=== PATIENT | male | born 1965 | race Caucasian/White ===

== ENCOUNTER 2017-01-19 10:14 | Emergency (ER) | payer OTHER ==
[~2017-01-19] VITALS: Ht 167.6 cm; Wt 80.3 kg
[~2017-01-19 10:14] MED LIST: /WARF25TA PO; ACET65TA; CEPH500C; COLA100C2; IBUP800T; LEVA750T; PERC5TAB PO; PERC5TAB8; TYLE325T5 PO; ULTR50TA PO; albuterol INH
[2017-01-19] MEDS ORDERED: PROZ20CA11 PO (10:24)
[2017-01-19] MEDS ORDERED: NORCO, ANEXSIA 5/325MG TABLET (HYDROcodone/ACETAMINOPHEN) PO ONE (11:15)
--- NOTE | 2017-01-19 12:33 | REP ---
RIGHT RIBS, PA CHEST, FIVE VIEWS: HISTORY: Anterior rib pain. The lungs are clear. The heart is normal in size. The pulmonary vasculature is normal in appearance. The bony structure is intact. IMPRESSION: No acute disease. Signed by Noel Garcia MD 01/19/2017 12:42 P
[2017-01-19] MEDS ORDERED: NAPR500T2 PO (12:45)
[2017-01-19] MEDS ORDERED: PERC5TAB6 PO (12:45)
[2017-01-19 12:58] VITALS: BP 129/82
== END 2017-01-19 12:58 | disposition home or self-care (01) ==
LOC: M ED 11:03
DX: S20.211A Contusion of right front wall of thorax, initial encounter (principal); W22.8XXA Striking against or struck by other objects, initial encounter; Y92.89 Other specified places as the place of occurrence of the external cause; Y93.02 Activity, running; Y99.9 Unspecified external cause status

== ENCOUNTER 2017-03-13 12:32 | Emergency (ER) | payer OTHER ==
[~2017-03-13] VITALS: Ht 167.6 cm; Wt 81.6 kg
[~2017-03-13 12:32] MED LIST changes: +NAPR500T2 PO; +PERC5TAB6 PO; +PROZ20CA11 PO
[2017-03-13] MEDS ORDERED: QUET1TAB8 (12:46)
[2017-03-13] MEDS ORDERED: IBUP600T26 PO (13:58)
[2017-03-13 14:06] VITALS: BP 154/97
== END 2017-03-13 14:10 | disposition home or self-care (01) ==
LOC: M ED 13:30
DX: R07.89 Other chest pain (principal); Z91.81 History of falling; F41.9 Anxiety disorder, unspecified; Z87.820 Personal history of traumatic brain injury; Z98.61 Coronary angioplasty status; Z79.899 Other long term (current) drug therapy; Z88.8 Allergy status to other drugs, medicaments and biological substances; Z86.69 Personal history of other diseases of the nervous system and sense organs

== ENCOUNTER 2017-07-03 15:43 | Emergency (ER) | payer OTHER ==
[~2017-07-03] VITALS: Ht 170.2 cm; Wt 81.8 kg
[2017-07-03 15:43] VITALS: BP 117/85
[~2017-07-03 15:43] MED LIST changes: +IBUP-1022 PO; -NAPR500T2 PO; +NAPR500T3 PO; +PERC5TAB12 PO; -PERC5TAB6 PO; +QUET1TAB8
[2017-07-03] MEDS ORDERED: GABA800T PO (15:58)
[2017-07-03] MEDS ORDERED: MELO15TA4 PO (15:58)
[2017-07-03] MEDS ORDERED: TETRACAINE 0.5% OPHTH SOLN 4ML OS ONE (16:15)
[2017-07-03] MEDS ORDERED: FLUORESCEIN OPHTH 1 MG STRIP OS ONE (16:15)
[2017-07-03] MEDS ORDERED: ERYTHROMYCIN OPHTH OINT OS ONE (16:30)
[2017-07-03] MEDS ORDERED: ERYTOIN8 OS (16:47)
== END 2017-07-03 16:56 | disposition home or self-care (01) ==
LOC: M ED 15:43
DX: H57.12 Ocular pain, left eye (principal); H35.30 Unspecified macular degeneration; F41.9 Anxiety disorder, unspecified; Z95.5 Presence of coronary angioplasty implant and graft; Z79.899 Other long term (current) drug therapy; Z88.8 Allergy status to other drugs, medicaments and biological substances

== ENCOUNTER 2017-07-08 18:19 | Emergency (ER) | payer OTHER ==
[~2017-07-08] VITALS: Ht 170.2 cm; Wt 81.8 kg
[~2017-07-08 18:19] MED LIST changes: +ERYTOIN8 OS; +GABA800T PO; +MELO15TA4 PO
[2017-07-08 18:20] VITALS: BP 143/79
--- NOTE | 2017-07-08 19:54 | REP ---
HISTORY: Toe pain. FINDINGS: The joint spaces are symmetric and relatively well maintained. There is no evidence of acute fracture or destructive osseous lesion. IMPRESSION: Negative. Signed by Carlos Alberto Velazco DO 07/09/2017 09:38 A
== END 2017-07-08 20:21 | disposition left against medical advice (07) ==
LOC: M ED 18:19
DX: R52 Pain, unspecified (principal); Z53.21 Procedure and treatment not carried out due to patient leaving prior to being seen by health care provider

== ENCOUNTER 2017-07-09 11:35 | Emergency (ER) | payer OTHER ==
[~2017-07-09] VITALS: Ht 170.2 cm; Wt 81.8 kg
[2017-07-09 11:35] VITALS: BP 139/84
== END 2017-07-09 11:57 | disposition left against medical advice (07) ==
LOC: M ED 11:35
DX: M79.673 Pain in unspecified foot (principal); Z53.29 Procedure and treatment not carried out because of patient's decision for other reasons

== ENCOUNTER 2017-07-14 10:33 | Emergency (ER) | payer OTHER ==
[~2017-07-14] VITALS: Ht 170.2 cm; Wt 81.8 kg
[2017-07-14] MEDS ORDERED: TETRACAINE 0.5% OPHTH SOLN 4ML OS ONE (11:00)
[2017-07-14] MEDS ORDERED: FLUORESCEIN OPHTH 1 MG STRIP OS ONE (11:00)
[2017-07-14 11:55] VITALS: BP 116/72
[2017-07-14] MEDS ORDERED: TOBRSUS41 OS (12:04)
== END 2017-07-14 12:10 | disposition home or self-care (01) ==
LOC: M ED 10:33
DX: H01.006 Unspecified blepharitis left eye, unspecified eyelid (principal); H10.32 Unspecified acute conjunctivitis, left eye

== ENCOUNTER 2018-02-02 15:32 | Emergency (ER) | payer OTHER | END 2018-02-02 17:12 | disposition left against medical advice (07) | LOC: M ED 15:32 | DX: Z53.29 Procedure and treatment not carried out because of patient's decision for other reasons (principal) ==

== ENCOUNTER 2018-06-08 11:24 | Emergency (ER) | payer OTHER ==
[2018-06-08] MEDS: NORCO, ANEXSIA 5/325MG TABLET (HYDROcodone/ACETAMINOPHEN) PO (13:36)
== END 2018-06-08 14:29 | disposition home or self-care (01) ==
LOC: M ED 11:24
DX: S93.402A Sprain of unspecified ligament of left ankle, initial encounter (principal); X50.9XXA Other and unspecified overexertion or strenuous movements or postures, initial encounter; Y92.89 Other specified places as the place of occurrence of the external cause; J44.9 Chronic obstructive pulmonary disease, unspecified; F41.9 Anxiety disorder, unspecified; Z88.8 Allergy status to other drugs, medicaments and biological substances; Z79.899 Other long term (current) drug therapy
CPT/HCPCS: 73590

== ENCOUNTER 2019-04-07 04:13 | Emergency (ER) | payer OTHER, SELFPAY ==
[~2019-04-07] VITALS: Ht 167.6 cm; Wt 100.0 kg
[2019-04-07 04:13] VITALS: BP 143/87
[~2019-04-07 04:13] MED LIST changes: -/WARF25TA PO; +COUM1TAB18 PO; +GABA600T4; -GABA800T PO; +GABA800T4 PO; +HYDR-3363; +LAMO25TA4; +MELO15TA28 PO; -MELO15TA4 PO; +NAPR-885 PO; -NAPR500T3 PO; +PROZ40CA PO; +SERO50TA PO; +TOBRSUS41 OS
--- NOTE | 2019-04-07 11:21 | ECGEPIP ---
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
== END 2019-04-07 05:36 | disposition left against medical advice (07) ==
LOC: M ED 04:13
DX: Z53.29 Procedure and treatment not carried out because of patient's decision for other reasons (principal)

== ENCOUNTER 2019-09-27 11:13 | Emergency (ER) | payer OTHER, SELFPAY ==
[~2019-09-27] VITALS: Ht 170.2 cm; Wt 107.7 kg
[2019-09-27] MEDS ORDERED: GABA800T4 PO (11:19)
[2019-09-27] MEDS ORDERED: TRAZ-252 PO (11:19)
[2019-09-27] MEDS ORDERED: FLUO20CA19 PO (11:19)
[2019-09-27] MEDS ORDERED: IBUP80TA PO (12:12)
[2019-09-27] MEDS ORDERED: KETOROLAC TROMETHAMINE 10 MG TAB PO ONE (12:15)
--- NOTE | 2019-09-27 12:16 | REP ---
Clinical: Trauma. Technique: Frontal view of the chest with multiple views of the left hemithorax. Findings: Frontal view of the chest demonstrates no acute cardiopulmonary process. Multiple views of the left hemithorax demonstrates no obvious acute rib fracture or pathology. Impression: No obvious acute left rib fracture identified. Electronically Signed by Suresh Barrientos MD 09/27/2019 12:07 P
[2019-09-27 12:25] VITALS: BP 140/60
== END 2019-09-27 12:30 | disposition home or self-care (01) ==
LOC: M ED 11:13
DX: S23.41XA Sprain of ribs, initial encounter (principal); W00.0XXA Fall on same level due to ice and snow, initial encounter; Y92.009 Unspecified place in unspecified non-institutional (private) residence as the place of occurrence of the external cause; Y93.9 Activity, unspecified; Y99.9 Unspecified external cause status; Z79.899 Other long term (current) drug therapy; Z88.8 Allergy status to other drugs, medicaments and biological substances

== ENCOUNTER → 2022-02-06 | Outpatient (CLI) | payer OTHER ==
[~2022-02-06] MED LIST changes: +FLUO20CA22 PO; +IBUP80TA PO; +QUET100T2; -QUET1TAB8; +TRAZ-252 PO
== END ==
LOC: M LABSMTC 09:03
PROVIDERS: ATTEND Orthopaedic Surgery
DX: Z11.52 Encounter for screening for COVID-19 (principal); Z20.822 Contact with and (suspected) exposure to COVID-19

== ENCOUNTER → 2022-05-14 | Outpatient (CLI) | payer OTHER | LOC: M PLARAD 09:19 | PROVIDERS: ATTEND Orthopaedic Surgery | DX: M54.50 Low back pain, unspecified (principal); M54.9 Dorsalgia, unspecified; M54.2 Cervicalgia; Z53.9 Procedure and treatment not carried out, unspecified reason ==

== ENCOUNTER 2022-12-10 16:36 | Emergency (ER) | payer OTHER ==
[~2022-12-10] VITALS: Ht 172.7 cm; Wt 95.7 kg
[2022-12-10 16:37] VITALS: BP 132/91
[2022-12-10] MEDS ORDERED: ALBU8.5H (16:41)
[2022-12-10] MEDS ORDERED: PERCOCET 5MG/325MG TAB PO ONE (18:30)
== END 2022-12-10 19:07 | disposition left against medical advice (07) ==
LOC: M ED 16:36
DX: S20.219A Contusion of unspecified front wall of thorax, initial encounter (principal); W00.1XXA Fall from stairs and steps due to ice and snow, initial encounter; Y92.019 Unspecified place in single-family (private) house as the place of occurrence of the external cause; Y93.01 Activity, walking, marching and hiking; Y99.8 Other external cause status; J44.9 Chronic obstructive pulmonary disease, unspecified; F41.9 Anxiety disorder, unspecified; F32.A Depression, unspecified; F17.200 Nicotine dependence, unspecified, uncomplicated; R56.9 Unspecified convulsions; Z88.8 Allergy status to other drugs, medicaments and biological substances; Z79.51 Long term (current) use of inhaled steroids; Z79.899 Other long term (current) drug therapy